=== PATIENT | female | born 1950 | race Two or more races ===

== ENCOUNTER → 2024-10-03 | Outpatient (CLI) | payer MEDICARE, SELFPAY ==
--- NOTE | 2024-10-03 | XR_ITS ---
Examination: PA lateral chest 2 views TECHNIQUE: Upright PA lateral chest 2 views Exam date and time: October 03, 2024 1304 hours INDICATIONS: Chest pain coughing beginning 3 days ago. FINDINGS: Early pneumonia left base Right lung clear Normal heart size IMPRESSION: Early pneumonia left base
[2024-10-03 13:55] LABS: Basophils % (Auto) 0 % (0-2.5); Eosinophils # (Auto) 0.1 Thou/mm3 (0.0-0.5); Eosinophils % (Auto) 1 % (0-10); Hemoglobin 13.4 g/dL (12.0-16.0); Immature Granulocytes % (Auto) 1 % (0-0); Immature Granulocytes Auto 0.09 Thou/mm3 (0.00-0.00); Lymphocytes # (Auto) 2.3 Thou/mm3 (1.0-4.8); Lymphocytes % (Auto) 32 % (10-50); Mean Corpuscular HGB Conc 31.9 g/dl (31.0-37.0); Mean Corpuscular Hemoglobin 28.5 pg (25.0-35.0); Mean Corpuscular Volume 89 fL (80-100); Monocytes # (Auto) 0.6 Thou/mm3 (0.0-0.8); Monocytes % (Auto) 8 % (0-12); Neutrophils # (Auto) 4.2 Thou/mm3 (1.8-7.7); Neutrophils % (Auto) 58 % (37-80); Nucleated Red Blood Cell % 0 /100 WBC (0); Platelet Count 241 Thou/mm3 (140-440); Red Blood Count 4.71 Miln/mm3 (4.00-5.20); White Blood Count 7.3 Thou/mm3 (3.6-11.0)
[2024-10-03 14:47] LABS: Alanine Aminotransferase 11 U/L (10-49); Albumin, Serum 4.9 gm/dL (3.4-4.8); Albumin/Globulin Ratio 1.7 (1.2-2.2); Alkaline Phosphatase 51 U/L (46-116); Anion Gap 8 (7-16); Aspartate Amino Transferase 10 U/L (0-34); BUN/Creatinine Ratio 24 Ratio (12-20); Bilirubin,Total 0.4 mg/dL (0.3-1.2); Blood Urea Nitrogen 24 mg/dL (9-23); Calcium 10.3 mg/dL (8.3-10.6); Calcium (Corrected) 10.3 mg/dL (8.5-10.1); Carbon Dioxide 28.6 mMol/L (20.0-31.0); Chloride 102 mMol/L (98-107); Globulin 2.9 gm/dL (2.3-3.5); Glucose 130 mg/dL (74-106); Osmolality,Calculated 283 (275-295); Potassium 4.3 mMol/L (3.4-5.1); Sodium 139 mMol/L (136-145); Total Protein 7.8 gm/dL (5.7-8.2); eGFR 59 See Note
== END | disposition home or self-care (01) ==
LOC: CDIM 12:20 → COPL 13:14
PROVIDERS: PCP Family Medicine; Referring Provider Internal Medicine; Visit Provider Radiology Diagnostic Radiology
DX: J18.9 Pneumonia, unspecified organism (principal); R07.89 Other chest pain
CPT/HCPCS: 36415; 71046; 80053; 85025

== ENCOUNTER → 2024-12-23 | Outpatient (CLI) | payer SELFPAY ==
[2024-12-23 09:31] LABS: Basophils % (Auto) 1 % (0-2.5); Eosinophils % (Auto) 1 % (0-10); Hematocrit 38.6 % (36.0-46.0); Hemoglobin 12.5 g/dL (12.0-16.0); Immature Granulocytes % (Auto) 1 % (0-0); Immature Granulocytes Auto 0.04 Thou/mm3 (0.00-0.00); Lymphocytes # (Auto) 1.6 Thou/mm3 (1.0-4.8); Lymphocytes % (Auto) 43 % (10-50); Mean Corpuscular HGB Conc 32.4 g/dl (31.0-37.0); Mean Corpuscular Hemoglobin 28.7 pg (25.0-35.0); Mean Corpuscular Volume 89 fL (80-100); Monocytes # (Auto) 0.3 Thou/mm3 (0.0-0.8); Monocytes % (Auto) 8 % (0-12); Neutrophils # (Auto) 1.8 Thou/mm3 (1.8-7.7); Neutrophils % (Auto) 47 % (37-80); Nucleated Red Blood Cell % 0 /100 WBC (0); Platelet Count 215 Thou/mm3 (140-440); RDW Standard Deviation 42.3 fL (36.4-46.3); Red Blood Count 4.36 Miln/mm3 (4.00-5.20); White Blood Count 3.8 Thou/mm3 (3.6-11.0)
[2024-12-23 09:43] LABS: Glucose Estimated Average 169 mg/dL (80-131); Hemoglobin A1C 7.5 % Hgb (4.8-6.0)
[2024-12-23 10:04] LABS: Alanine Aminotransferase 15 U/L (10-49); Albumin, Serum 4.1 gm/dL (3.4-4.8); Albumin/Globulin Ratio 1.6 (1.2-2.2); Alkaline Phosphatase 35 U/L (46-116); Anion Gap 10 (7-16); Aspartate Amino Transferase 16 U/L (0-34); BUN/Creatinine Ratio 27 Ratio (12-20); Bilirubin,Total 0.7 mg/dL (0.3-1.2); Blood Urea Nitrogen 24 mg/dL (9-23); Calcium 9.7 mg/dL (8.3-10.6); Calcium (Corrected) 9.7 mg/dL (8.5-10.1); Carbon Dioxide 26.8 mMol/L (20.0-31.0); Cardiac Risk Estimate 2.8 RATIO (3.7-5.6); Chloride 103 mMol/L (98-107); Cholesterol 205 mg/dL (132-200); Creatinine (Component) 0.9 mg/dL (0.6-1.3); Globulin 2.6 gm/dL (2.3-3.5); Glucose 170 mg/dL (74-106); HDL Cholesterol 72 mg/dL (40-60); LDL Cholesterol,Calculated 117 mg/dL (0-130); Osmolality,Calculated 287 (275-295); Potassium 4.5 mMol/L (3.4-5.1); Sodium 140 mMol/L (136-145); Total Protein 6.7 gm/dL (5.7-8.2); Triglycerides 81 mg/dL (30-150); eGFR > 60 See Note
[2024-12-23 10:59] LABS: Creatinine MALB Rnd Ur 72 mg/dL (30-125); Microalbumin Creat Ratio 56 mg/gCrea (<30); Microalbumin, Random Urine 40 mg/L (0-300)
== END | disposition home or self-care (01) ==
PROVIDERS: PCP Family Medicine; Referring Provider Family Medicine; Visit Provider Family Medicine
DX: E11.9 Type 2 diabetes mellitus without complications (principal)
CPT/HCPCS: 36415; 80053; 80061; 82043; 82570; 83036; 85025

== ENCOUNTER → 2025-03-24 | Outpatient (CLI) | payer MEDICARE, SELFPAY ==
[2025-03-24 09:28] LABS: Glucose Estimated Average 183 mg/dL (80-131)
[2025-03-24 09:35] LABS: Alanine Aminotransferase 10 U/L (10-49); Albumin, Serum 4.3 gm/dL (3.4-4.8); Alkaline Phosphatase 42 U/L (46-116); Aspartate Amino Transferase 17 U/L (0-34); Bilirubin,Direct 0.1 mg/dL (0.0-0.3); Bilirubin,Total 0.4 mg/dL (0.3-1.2); Cholesterol 105 mg/dL (132-200); HDL Cholesterol 52 mg/dL (40-60); LDL Cholesterol,Calculated 33 mg/dL (0-130); Total Protein 6.9 gm/dL (5.7-8.2); Triglycerides 100 mg/dL (30-150)
== END | disposition home or self-care (01) ==
LOC: COPL 08:27
PROVIDERS: PCP Family Medicine; Referring Provider Family Medicine; Visit Provider Family Medicine
DX: I10 Essential (primary) hypertension (principal)
CPT/HCPCS: 36415; 80061; 80076; 83036

== ENCOUNTER → 2025-05-05 | Outpatient (CLI) | payer MEDICARE, MEDICAID, SELFPAY ==
--- NOTE | 2025-05-05 10:32 | XR_ITS ---
Examination: Foot, right, 3 views Technique: AP, oblique, lateral views foot, 3 views Date and time of exam: May 05, 2025 1049 hours Indications foot pain and swelling beginning one month ago. FINDINGS: Moderate osteopenia. Moderate narrowing first metatarsophalangeal joint No fracture Plantar posterior bony calcaneal spurs No cortical bone destruction IMPRESSION: No cortical bone destruction Moderate osteoarthritis first metatarsophalangeal joint
== END | disposition home or self-care (01) ==
LOC: CDIM 10:04
PROVIDERS: PCP Nurse Practitioner Family; Referring Provider Nurse Practitioner Family; Visit Provider Nurse Practitioner Family
DX: M19.071 Primary osteoarthritis, right ankle and foot (principal)
CPT/HCPCS: 73630

== ENCOUNTER → 2025-05-19 | Outpatient (CLI) | payer MEDICARE, SELFPAY ==
--- NOTE | 2025-05-19 09:45 | XR_ITS ---
Examination: Screening digital mammography, bilateral Computer aided detection 3-D breast Tomosynthesis, bilateral Date and time of exam: May 29, 2025 0916 hours Compared to mammograms dating to September 11, 2010 Indication: Screening Technique: Nonmagnified MLO, CC views of the breasts to been obtained, reconstructed from 3-D Tomosynthesis images. R2 computer aided detection program utilized for evaluation of suspicious masses and/or abnormal calcifications. 3-D Tomosynthesis images obtained. Findings: Scattered areas of fibroglandular density. Benign calcifications. No suspicious masses Impression: BI-RADS category II: Benign Findings. Recommend 1 year follow-up mammogram.
== END | disposition home or self-care (01) ==
PROVIDERS: PCP Nurse Practitioner Family; Referring Provider Nurse Practitioner Family; Visit Provider Nurse Practitioner Family
DX: Z12.31 Encounter for screening mammogram for malignant neoplasm of breast (principal); R92.323 Mammographic fibroglandular density, bilateral breasts; R92.1 Mammographic calcification found on diagnostic imaging of breast
CPT/HCPCS: 77063; 77067

== ENCOUNTER → 2025-09-15 | Outpatient (CLI) | payer OTHER, SELFPAY ==
--- NOTE | 2025-09-15 10:33 | XR_ITS ---
Examination: Right hip AP, lateral, AP pelvis 3 views Technique: Hip AP lateral, AP pelvis, 3 views Exam date and time: September 15, 2025, 10:38 a.m INDICATIONS: Bilateral hip pain 1 month. FINDINGS: Moderate osteopenia. Moderate bilateral hip osteoarthritis Greater trochanteric bursitis left hip No hip or pelvic fracture IMPRESSION: Moderate bilateral hip osteoarthritis.
== END | disposition home or self-care (01) ==
LOC: CDIM 10:06
PROVIDERS: PCP Nurse Practitioner Family; Referring Provider Nurse Practitioner Family; Visit Provider Nurse Practitioner Family
DX: M16.0 Bilateral primary osteoarthritis of hip (principal)
CPT/HCPCS: 73502